=== PATIENT | female | born 1990 | race Hispanic/Latino ===

== ENCOUNTER 2016-09-16 19:09 | Emergency (ER) | payer OTHER ==
[2016-09-16 19:13] VITALS: BP 139/92; PULSE 84; RESP 20; TEMP 98.2; O2SAT 100
[2016-09-16] MEDS ORDERED: Oxycodone/Acetaminophen 5/325 mg Tab ONE (19:53)
[2016-09-16] MEDS ORDERED: Oxycodone/Acetaminophen 5/325 mg Tab PO STA (19:57)
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
== END 2016-09-16 21:59 | disposition home or self-care (01) ==
LOC: H.ER 19:09
DX: M79.605 Pain in left leg (principal)
CPT/HCPCS: 72170; 73552; 73590; 73600; 81025; 99285; J1885